=== PATIENT | male | born 1990 | race Caucasian/White ===

== ENCOUNTER 2021-04-23 20:08 | Emergency (ER) | payer OTHER ==
[2021-04-23] MEDS ORDERED: AUGMENTIN 875-1 EACH PO (21:12)
== END 2021-04-23 21:19 | disposition home or self-care (01) ==
LOC: FER 20:08
DX: S61.452A Open bite of left hand, initial encounter (principal); Z88.2 Allergy status to sulfonamides; W55.01XA Bitten by cat, initial encounter; Y92.009 Unspecified place in unspecified non-institutional (private) residence as the place of occurrence of the external cause
CPT/HCPCS: 99283